=== PATIENT | female | born 1980 | race Caucasian/White ===

== ENCOUNTER → 2024-04-29 10:42 | Outpatient (CLI) | payer OTHER, SELFPAY ==
--- NOTE | 2024-04-29 | DI.MRI.S_ITS ---
PROCEDURE: MR ANKLE LT WO CON INDICATIONS: Primary osteoarthritis, left ankle and foot TECHNIQUE: Noncontrast sagittal T1 spin echo and T2 fast spin echo with fat saturation, axial proton density fast spin echo and T2 fast spin echo with fat saturation, coronal T1 spin echo and T2 fast spin echo with fat saturation through the ankle/hindfoot. COMPARISON: [facility], CR, XR ANKLE 3 VIEWS WEIGHT BEARING LEFT, 01/05/2024, 10:24. [facility], CR, XR ANKLE 3 VIEWS WEIGHT BEARING LEFT, 03/29/2024, 9:36. FINDINGS: Image quality: Excellent. Bones and joints: Patient is status post prior internal fixation of medial malleolus and distal fibular shaft/lateral malleolus with susceptibility artifacts. No gross marrow edema. No acute fracture or dislocation. Partial bony fusion at medial malleolus fracture site is seen. Healed or nearly healed distal fibular shaft fracture is also noted. Nearly healed posterior malleolus fracture is also seen with minimal amount of surrounding edema. [id number] osteoarthritic changes are seen in tibiotalar joint, subtalar joint and talonavicular joint with significant joint space narrowing and subchondral sclerosis. No definite osteochondral injuries of talar dome. No significant joint effusion or intra-articular loose bodies. Well-defined plantar and dorsal calcaneal enthesophytes are seen. Diffuse ankle soft tissue swelling and edema is also noted, no discrete drainable fluid collection. Medial structures: The posterior tibialis, flexor digitorum longus, and flexor hallucis longus tendons are intact. Small amount of fluid distending posterior tibialis tendon sheath at the level of distal talus and talonavicular joint is seen. The posterior tibial neurovascular bundle appears normal within the tarsal tunnel, without extrinsic mass effect. The deltoid ligament and spring ligament are thickened with intrasubstance T2 hyperintense signal. Lateral structures: The anterior talofibular, calcaneofibular, and posterior talofibular ligaments appear thickened with intrasubstance T2 hyperintense signal.. More superiorly, the anterior and posterior tibiofibular ligaments appear intact, as is the intermalleolar ligament. The tibiofibular syndesmosis is normal in width at 2 mm or less. The peroneus longus and brevis tendons demonstrate normal location and morphology. The sinus tarsi demonstrates normal fatty signal, without edema, fibrosis, or cyst formation. Visualized sinus tarsi components (cervical ligament, interosseous talocalcaneal ligament, roots of the inferior extensor retinaculum) appear normal. Anterior structures: The tibialis anterior, extensor hallucis longus, and extensor digitorum longus tendons appear intact. The dorsal talonavicular ligament appears intact. Posterior and plantar structures: Achilles tendon is intact. Medial and lateral bands of the plantar fascia are of normal thickness. No abductor digiti quinti muscle atrophy to suggest Amato neuropathy. IMPRESSION: 1. Post ORIF changes in medial malleolus and distal fibular shaft/lateral malleolus. Healed or nearly healed distal fibular shaft fracture. Nearly healed medial malleolus and posterior malleolus fracture. No gross acute fracture or dislocation. No osteochondral injuries of talar dome. 2. Low-grade tenosynovitis involving posterior tibialis tendon near its distal insertion. 3. Low to moderate grade sprain/intrasubstance partial-thickness tear involving medial ankle ligaments. Moderate sprain/intrasubstance partial-thickness tear involving ATFL, Pt FL and calcaneofibular ligament. No definite full-thickness ankle ligament rupture. 4. Well-defined plantar calcaneal enthesophytes. Distal Achilles tendon and plantar fascia are within normal limits. Dictated by: Dante Gill M.D. on 04/29/2024 at 13:20 Approved by: Dante Gill M.D. on 04/29/2024 at 13:29
== END ==
LOC: MRI 10:44
PROVIDERS: PCP Internal Medicine; Referring Provider Orthopaedic Surgery Foot and Ankle Surgery; Visit Provider Orthopaedic Surgery Foot and Ankle Surgery
DX: S93.412A Sprain of calcaneofibular ligament of left ankle, initial encounter (principal); S93.492A Sprain of other ligament of left ankle, initial encounter; M19.072 Primary osteoarthritis, left ankle and foot; S82.62XD Displaced fracture of lateral malleolus of left fibula, subsequent encounter for closed fracture with routine healing; S82.52XD Displaced fracture of medial malleolus of left tibia, subsequent encounter for closed fracture with routine healing; M65.872 Other synovitis and tenosynovitis, left ankle and foot; M77.32 Calcaneal spur, left foot
CPT/HCPCS: 73721

== ENCOUNTER → 2025-05-24 13:48 | Outpatient (CLI) | payer OTHER, SELFPAY ==
[2025-05-24 14:53] LABS: Add Manual Diff / Slide Review NO; Hematocrit 39.9 % (36-46); Hemoglobin 13.0 g/dL (12.0-16.0); Lymphocytes Absolute Auto 2800 /uL (1100-4500); Mean Corpuscular HGB Conc 32.7 % (30-36); Mean Corpuscular Hemoglobin 25.9 PG (26-34); Mean Corpuscular Volume 79.1 fL (80-100); Platelet Count 291 X10^3/uL (150-400)
[2025-05-24 15:01] LABS: Hemoglobin A1C% w Est Avg Glu 6.0 % (4.0-6.0)
[2025-05-24 15:19] LABS: Blood Urea Nitrogen 7 mg/dL (7-17); Calcium 8.9 mg/dL (8.4-10.2); Carbon Dioxide 25 mmol/L (22-32); Chloride 103 mmol/L (98-107); Cholesterol 144 mg/dL (140-199); Estimated Glomerular Filt Rate > 60 mL/min (>60); Glucose 77 mg/dL (70-99); HDL Cholesterol 56 mg/dL (40-60); HEMOLYSIS < 15 (0-50); Potassium 4.0 mmol/L (3.4-5.1); Sodium 137 mmol/L (137-145); Triglycerides 139 mg/dL (35-150)
[2025-05-24 15:48] LABS: TSH w/ Reflex to FT4 1.97 uIU/mL (0.47-4.68)
== END ==
PROVIDERS: PCP Nurse Practitioner Family; Referring Provider Nurse Practitioner Family; Visit Provider Nurse Practitioner Family
DX: I10 Essential (primary) hypertension (principal)
CPT/HCPCS: 36415; 80048; 80061; 83036; 84443; 85025

== ENCOUNTER → 2025-06-17 10:04 | Outpatient (CLI) | payer OTHER, SELFPAY ==
--- NOTE | 2025-06-17 10:06 | DI.MG.S_ITS ---
MM screening mammo BI: 06/17/2025. BI-RADS: 1 CLINICAL: 45-year old female for bilateral screening mammogram. Tyrer-Cuzick lifetime risk of 13.2%. No personal or first-degree family history of breast cancer. PRIOR EXAMS No prior examinations available. MAMMOGRAPHY TECHNIQUE: 2D and 3D (tomosynthesis) digital mammographic views obtained, with additional images as needed for full coverage. Current study was also evaluated with a Computer Aided Detection (CAD) system. DENSITY B. There are scattered areas of fibroglandular density. MAMMOGRAPHY FINDINGS Bilateral: No suspicious mass, asymmetry, microcalcification, or other abnormality seen. IMPRESSION: * No evidence of malignancy. RECOMMENDATIONS Bilateral * Annual screening mammography. OVERALL ASSESSMENT CATEGORY BI-RADS-1: Negative. [employer] recommends annual screening mammography beginning at age 40 for women with average risk of breast cancer. ELECTRONICALLY SIGNED: Joseph Leon M.D. on 06/18/2025 at 08:23:58 PM PT Interpreting Station ID: [id number]
[2025-06-17 11:37] LABS: Blood Urea Nitrogen 7 mg/dL (7-17); Calcium 9.1 mg/dL (8.4-10.2); Carbon Dioxide 26 mmol/L (22-32); Chloride 99 mmol/L (98-107); Estimated Glomerular Filt Rate > 60 mL/min (>60); Glucose 89 mg/dL (70-99); HEMOLYSIS < 15 (0-50); Potassium 4.2 mmol/L (3.4-5.1); Sodium 136 mmol/L (137-145)
== END ==
LOC: MAMMO 10:05
PROVIDERS: PCP Nurse Practitioner Family; Referring Provider Nurse Practitioner Family; Visit Provider Nurse Practitioner Family
DX: Z12.31 Encounter for screening mammogram for malignant neoplasm of breast (principal); I10 Essential (primary) hypertension
CPT/HCPCS: 36415; 77063; 77067; 80048